=== PATIENT | female | born 1975 ===

== ENCOUNTER 2018-06-23 09:56 | Emergency (ER) | payer OTHER ==
[~2018-06-23] VITALS: Ht 165.1 cm; Wt 65.8 kg
[~2018-06-23 09:56] MED LIST: DICLOFENAC POTA50 MG PO; LYRICA50 MG PO; MEDROLPACK PO; NEURONTIN300 MG PO; OXYCODONE HCL5 M1 PO; PERCOCET 5/3251 TAB PO
[2018-06-23] MEDS ORDERED: AMOX-CLAV 875-1 EACH PO (11:24)
== END 2018-06-23 12:52 | disposition home or self-care (01) ==
LOC: ER 09:56
DX: J03.00 Acute streptococcal tonsillitis, unspecified (principal)